=== PATIENT | male | born 1995 | race Caucasian/White ===

== ENCOUNTER 2021-10-11 18:29 | Emergency (ER) | payer OTHER ==
[~2021-10-11] VITALS: Ht 170.2 cm; Wt 89.9 kg
[2021-10-11 18:41] VITALS: BP 172/94
--- NOTE | 2021-10-11 19:06 | NUR ---
PT AMBULATED TO ER BED 12 WITH A STEADY GAIT.
--- NOTE | 2021-10-11 19:07 | NUR ---
GAVE REPORT TO NAKIA WINKLER. TRANSFER OF CARE AT THIS TIME.
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
[2021-10-11] MEDS ORDERED: KETOROLAC 30 MG/ML VIAL IM ONE (20:35)
[2021-10-11] MEDS ORDERED: BACITRACIN OINT 500 UNITS/GM PKT TP ONE (20:35)
[2021-10-11] MEDS ORDERED: BACI1PAC6 TP (21:01)
[2021-10-11] MEDS ORDERED: NAPR-54 PO (21:01)
[2021-10-11] MEDS ORDERED: CYCL-711 PO (21:01)
[2021-10-11 21:10] VITALS: BP 172/94
--- NOTE | 2021-10-11 21:10 | NUR ---
Patient discharged with v/s stable. Written and verbal after care instructions given and explained. Patient alert, oriented and verbalized understanding of instructions. Ambulatory with steady gait. All questions addressed prior to discharge. ID band removed. Patient advised to follow up with PMD. Rx of BACITRACIN, FLEXERIL, NAPROSYN given. Patient educated on indication of medication including possible reaction and side effects. Opportunity to ask questions provided and answered.
== END 2021-10-11 21:10 | disposition home or self-care (01) ==
LOC: MED 18:29
DX: S50.01XA Contusion of right elbow, initial encounter (principal); S60.221A Contusion of right hand, initial encounter; S00.81XA Abrasion of other part of head, initial encounter; I10 Essential (primary) hypertension; Z79.899 Other long term (current) drug therapy; V43.53XA Car driver injured in collision with pick-up truck in traffic accident, initial encounter; Y93.89 Activity, other specified; Y92.411 Interstate highway as the place of occurrence of the external cause; Y99.8 Other external cause status
CPT/HCPCS: 71045; 73070; 73120; 96372; 99284; J1885; Q0092